=== PATIENT | female | born 1975 | race Two or more races ===

== ENCOUNTER 2025-06-11 22:06 | Inpatient (IN) | payer BC, OTHER ==
[~2025-06-11] VITALS: Ht 154.9 cm; Wt 66.4 kg
--- NOTE | 2025-06-11 22:23 | ECG ---
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
[2025-06-11] MEDS: NITROGLYCERIN 0.4 MG SL TAB SL ONE (23:43)
[2025-06-11 23:45] LABS: Hematocrit 48.4 % (36.0-46.0); Hemoglobin 16.6 g/dL (12.2-16.2); Mean Corpuscular Hemoglobin 29.5 pg (28.0-32.0); Mean Corpuscular Volume 85.9 fL (80.0-100.0); Nucleated Red Blood Cells % 0.1 %
--- NOTE | 2025-06-11 23:52 | DVH ---
CLINICAL HISTORY: cp TECHNIQUE: Single view of the chest was obtained. COMPARISON: None FINDINGS: The heart size and pulmonary vasculature are normal. The lungs are clear. IMPRESSION: NO ACUTE CARDIOPULMONARY PROCESS.
--- NOTE | 2025-06-11 23:56 | DVH ---
EXAM: CT HEAD WITHOUT CONTRAST INDICATION: HTN, TECHNIQUE: CT of the head without intravenous contrast. Radiation Dose : 1. Head: CT Dose: CTDI volume is 49.02 mGy. Dose-length product is 884.06 mGy*cm The dose indicators for CT are the volume Computed Tomography (CT) Dose Index (CTDIvol) and the Dose Length Product (DLP), and are measured in units of mGy and mGy-cm, respectively. These indicators are not patient dose, but values generated from the CT scanner acquisition factors. The report includes radiation exposure data for exposures received during this examination. COMPARISON: None FINDINGS: The cerebral parenchyma appears to be normal configuration and attenuation. The ventricles, cisterns , and sulci appear age-appropriate. There is no evidence for acute territorial infarct, hemorrhage, or mass effect. The orbits are normal. Subtotal opacification of the left sphenoid sinus. Polyp versus retention cy st within the right sphenoid sinus. The soft tissues and osseous structures appear within normal short its. IMPRESSION: 1. No acute territorial infarct, intracranial hemorrhage, or mass effect. 2. Left sphenoid sinus disease. 3. If clinical symptoms persist, MRI may be beneficial in further evaluation. Radiation optimization: All CT scans at this facility use at least one of these dose optimization jamey hniques: automated exposure control mA and/or kV adjustment per patient size (includes targeted exam s where dose is matched to clinical indication) or iterative reconstruction.
[2025-06-11 23:59] LABS: Chloride 105 mmol/L (98-107); Potassium 3.6 mmol/L (3.5-5.1); Sodium 140 mmol/L (136-145)
[2025-06-12] VITALS (13 sets, daily range): BP systolic 107–152; BP diastolic 72–101; PULSE 64–85; RESP 16–20; TEMP 97.7–98.7; O2SAT 94–100
[2025-06-12] LABS: Anion Gap 8 (5-15); Calcium 9.2 mg/dL (8.7-10.4); Carbon Dioxide 27 mmol/L (20-31)
[2025-06-12 00:06] LABS: BUN/Creatinine Ratio 21.6 (10.0-20.0); Blood Urea Nitrogen 16 mg/dL (9-23); Glucose 102 mg/dL (74-106)
--- NOTE | 2025-06-12 00:16 | ED.PDOC ---
HPI Comments HPI: Poor Historian. 49-year-old female sent by her primary care doctor for evaluation of hy pertension. Patient has known history of hypertension is on losartan and states compliance with the medications. She checked her blood pressure yesterday and was in the 200s systolically. She checked it again this morning it was 150s systolic. She called her PCP who told her to go to the ER. Patient has a associated mild midsternal nonspecific chest discomfort and some mild forehead headache with the elevated blood pressure. Denies any other acute symptoms. Past Medical History: Hypertension Past Surgical History: Denies any Social history: Tobacco abuse denies drugs Positive family history for coronary artery disease. REVIEW OF SYSTEMS: CONSTITUTIONAL: Denies acute: fever, diaphoresis, chills, generalized weakness. HEAD: Denies acute: photophobia Eyes: Denies acute: Double vision, vision loss, eye pain, eye discharge. EARS: Denies acute: tinnitus, hearing loss, ear discharge, ear pain, THROAT: Denies acute: sore throat, swelling, difficulty swallowing , pain with swallowing, change in voice. NECK: Denies acute: neck pain, neck swelling, stiff neck. HEART: Denies acute : palpitations, LUNGS: Denies acute: SOB, wheezing, cough, hemoptysis ABDOMEN: Denies acute: abdominal pain, Nausea, Vomiting, diarrhea, melena , hematemesis, hematochezia SKIN: Denies acute: rash, redness, lesions, itchiness. EXTREMITIES: Denies acute: calf pain, numbness, tingling, weakness, denies pain in extremity. Denies acute: Low back pain. Neuro: Denies acute: focal neurological deficit, motor or sensory focal neurological deficit, tremors, seizure like activity, confusion, dizziness, change in mental status, loss of bowel or bladder function, cauda equina like symptoms. : Denies acute: dysuria, hematuria, flank pain, increase in urinary frequency. PSYCH: Denies acute: hallucination, suicidal ideation, homicidal ideation. FEMALE: Denies acute: abnormal vaginal bleeding, foul odor, unusual discharge. PHYSICAL EXAM: General: --------acute distress, awake and alert. Head: normocephalic, atraumatic. Neck: supple, trachea is midline, no swelling. Throat: Normal phonation. Eyes:, no erythema, no purulent discharge, no proptosis, no icterus. Heart: regular rate, regular rhythm, no significant murmur appreciated. Lungs: no apparent respiratory distress, Able to speak in full sentences. No wheezing, no rhonchi, no crackles. No stridors Clear to auscultation bilaterally. Abdomen: non tender to palpation, non distended, soft, no guarding, no rebound, + bowel sounds. Neuro: Awake, Alert, oriented to name, self, situation, follows commands GCS=15. Speech is normal. Skin: no petechia, no purpura, no cyanosis, non-pale, not jaundice. Lower extremities: --no - Pitting edema no deformity, no focal swelling, no calf TTP. Makes eye contact. moves all four extremities. Face: no apparent facial droop. Ambulating in the ED independently. ED COURSE: DISCLAIMER: This medical document was created using an electronic medical record system with voice recognition software and computerized dictation system. Although this document has been carefully reviewed, there might still be some phonetic and typographical errors. Occasional wrong-word or "sound-alike" substitutions may have occurred due to the inherent limitations of voice recognition software. These areas are purely typographical due to imperfections of the software programs and do not reflect any compromise in the patient's medical care. Please read the chart carefully and recognize, using context, where these substitutions have occurred. Chief Complaint: High Blood Pressure Time Seen by MD: 23:20 Reviewed Notes: Allergies Allergies: Coded Allergies: NO KNOWN ALLERGIES (Unverified , 06/11/25) Information Source: Patient Mode of Arrival: Ambulatory Was a procedure done? Was a procedure done?: No CP Differential Dx Differential Diagnosis: Other Differential Diagnosis: Other (DDX include renal disease, thyroid disease, electrolyte abnormality, increased salt intake, medications non-compliance, undiagnosed HTN, Hypertensive crisis, hypertensive urgency., drug toxicity.) Differential Diagnosis: Other (Ddx include but not limitied to gastritis, musculoskeletal pain, radiculopathy, atypical chest pain, dissection, aneurysm, ACS, unstable angina, hiatal hernia, GERD, anxiety, costochondritis, PE, pneumothroax, neoplasm, cardiac ischemia, drug abuse, anemia.) X-Ray, Labs, Meds, VS Vital Signs Date Time Temp Pulse Resp B/P (MAP) Pulse Ox O2 Delivery O2 Flow Rate FiO2 06/12/25 02:03 61 14 152/88 (109) 96 06/12/25 01:00 93 169/112 06/12/25 01:00 169/112 06/12/25 00:02 152/102 (119) 06/11/25 23:43 159/98 06/11/25 23:43 77 19 159/98 (118) 97 06/11/25 22:17 82 06/11/25 22:08 98.7 85 18 195/126 97 98.7 Lab Test 06/12/25 00:25 06/11/25 23:34 Range/Units Troponin I High Sensitivity 4 3 L </=34 ng/L White Blood Count 11.5 H 4.4-10.8 10^3/uL Red Blood Count 5.63 H 4.0-5.20 10^6/uL Hemoglobin 16.6 H 12.2-16.2 g/dL Hematocrit 48.4 H 36.0-46.0 % Mean Corpuscular Volume 85.9 80.0-100.0 fL Mean Corpuscular Hemoglobin 29.5 28.0-32.0 pg Mean Corpuscular Hemoglobin Concent 34.4 32.0-36.0 g/dL Red Cell Distribution Width 13.8 11.8-14.3 % Platelet Count 292 140-450 10^3/uL Mean Platelet Volume 7.6 6.9-10.8 fL Neutrophils (%) (Auto) 49.6 37.0-80.0 % Lymphocytes (%) (Auto) 38.4 10.0-50.0 % Monocytes (%) (Auto) 6.1 0.0-12.0 % Eosinophils (%) (Auto) 4.5 0.0-7.0 % Basophils (%) (Auto) 1.4 0.0-2.0 % Neutrophils # (Auto) 5.7 1.6-8.6 10 ^3/uL Lymphocytes # (Auto) 4.4 0.4-5.4 10 ^3/uL Monocytes # (Auto) 0.7 0-1.3 10 ^3/uL Eosinophils # (Auto) 0.5 0-0.8 10 ^3/uL Basophils # (Auto) 0.2 0-0.2 10 ^3/uL Nucleated Red Blood Cells 0.1 % Sodium Level 140 136-145 mmol/L Potassium Level 3.6 3.5-5.1 mmol/L Chloride Level 105 98-107 mmol/L Carbon Dioxide Level 27 20-31 mmol/L Anion Gap 8 5-15 Blood Urea Nitrogen 16 9-23 mg/dL Creatinine 0.74 0.550-1.02 mg/dL Glomerular Filtration Rate Calc 99 >90 mL/min BUN/Creatinine Ratio 21.6 H 10.0-20.0 Serum Glucose 102 74-106 mg/dL Calcium Level 9.2 8.7-10.4 mg/dL Current Medications Medications (Trade) Dose Ordered Sig/Kane Route Start Time Stop Time Status Last Admin Nitroglycerin (Ntrostat Sublingual) 0.4 mg ONCE ONCE SL 06/11/25 23:30 06/12/25 01:02 DC 06/11/25 23:43 Labetalol HCl (Labetalol HCl) 5 mg ONCE ONCE IV 06/12/25 00:15 06/12/25 01:02 DC 06/12/25 01:00 Aspirin (Ecotrin Enteric Coated Tablet) 325 mg ONCE ONCE PO 06/12/25 00:15 06/12/25 01:02 DC 06/12/25 00:55 [place] [id number] Ph: [phone] DIAGNOSTIC IMAGING Diagnostic Imaging Report : [id number] Signed PATIENT: YUSEF BERMUDEZ ACCT: [id number] UNIT: [id number] : 1975 LOC: ER ROOM / BED: / AGE / SEX: 49 / F ADM STATUS: REG ER SERVICE 2320 ORDERING PHYSICIAN: AZAM MCKINNON DO PROCEDURE(s): HWOCT - HEAD WITHOUT CONTRAST REASON: HTN, ORDER NUMBER(s): [id number], ACCESSION NUMBER(s): [id number] EXAM: CT HEAD WITHOUT CONTRAST INDICATION: HTN, TECHNIQUE: CT of the head without intravenous contrast. Radiation Dose : 1. Head: CT Dose: CTDI volume is 49.02 mGy. Dose-length product is 884.06 mGy*cm The dose indicators for CT are the volume Computed Tomography (CT) Dose Index (CTDIvol) and the Dose Length Product (DLP), and are measured in units of mGy and mGy-cm, respectively. These indicators are not patient dose, but values generated from the CT scanner acquisition factors. The report includes radiation exposure data for exposures received during this examination. COMPARISON: None FINDINGS: The cerebral parenchyma appears to be normal configuration and attenuation. The ventricles, cisterns, and sulci appear age-appropriate. There is no evidence for acute territorial infarct, hemorrhage, or mass effect. The orbits are normal. Subtotal opacification of the left sphenoid sinus. Polyp versus retention cyst within the right sphenoid sinus. The soft tissues and osseous structures appear within normal limits. IMPRESSION: 1. No acute territorial infarct, intracranial hemorrhage, or mass effect. 2. Left sphenoid sinus disease. 3. If clinical symptoms persist, MRI may be beneficial in further evaluation. Radiation optimization: All CT scans at this facility use at least one of these dose optimization techniques: automated exposure control mA and/or kV adjustment per patient size (includes targeted exams where dose is matched to clinical indication) or iterative reconstruction. ATED BY: ADAM SEXTON MD DICTATED DATE/TIME: 06/11/252353 SIGNED BY: ADAM SEXTON MD SIGNED DATE/TIME: 06/11/252353 CC: [place] [address] Ph: [phone] DIAGNOSTIC IMAGING Diagnostic Imaging Report : [id number] Signed PATIENT: YUSEF BERMUDEZ ACCT: [id number] UNIT: [id number] : 1975 LOC: ER ROOM / BED: / AGE / SEX: 49 / F ADM STATUS: REG ER SERVICE 19 ORDERING PHYSICIAN: AZAM MCKINNON DO PROCEDURE(s): CXRP - CHEST PORTABLE REASON: cp ORDER NUMBER(s): [id number], ACCESSION NUMBER(s): [id number] CLINICAL HISTORY: cp TECHNIQUE: Single view of the chest was obtained. COMPARISON: None FINDINGS: The heart size and pulmonary vasculature are normal. The lungs are clear. IMPRESSION: NO ACUTE CARDIOPULMONARY PROCESS. ATED BY: MATILDA VALENZUELA MD DICTATED DATE/TIME: 06/11/252348 SIGNED BY: MATILDA VALENZUELA MD SIGNED DATE/TIME: 06/11/252348 CC: Time of 1ST Reevaluation: 02:24 (After given patient's nitroglycerin and labetalol, chest pain and headache has resolved) Reevaluation 1ST: Resolved Patient Education/Counseling: Diagnosis, Treatment Family Education/Counseling: Other Comments MDM: patient presented with the above HPI.--cardiac----workup was initiated. patient was found with the above mentioned diagnosis. the following medications were ordered: please refer to order lists of meds and tests obtained by myself Dr. Mckinnon. Patient ED course and VS have been stabilized. Patient has been reassessed in the ED and remained in a stable condition. Pertinent incidental findings were discussed with the patient and/or family. Patient/family voices understanding and is agreeable with plan. Patient has been observed in the ED adequate length of time to insure improvement/stability. Escalation of care considered: Consideration of escalation to observation or admission Patient was given nitroglycerin sublingual and labetalol IV. Symptoms resolved. Patient's heart score is at least three. Patient has never had any cardiac workup. Patient was ADMITTED to the medicine team for further evaluation and treatment of their presentation. All the reports of any imaging studies that were ordered by myself were reviewed by myself. Departure 1 Departure Time of Disposition: 00:14 Impression: Primary Impression: Hypertensive urgency Additional Impressions: Chest pain Sinus disease Disposition: ADMITTED INPATIENT Admit to: Tele Condition: Guarded Discharged With: Self Critical Care Note Critical Care Time?: Yes (35 min-critical care time only) Heart Score Heart Score: Heart Score Response (Comments) Value History Moderate Suspicious 1 EKG Normal 0 Age 45-64 1 Risk Factors 1 or 2 risk factors 1 Troponin Normal limit 0 Total 3 AZAM MCKINNON DO Jun 12, 2025 00:16
[2025-06-12] MEDS: ASPirin-EC 325mg tab PO ONE (00:55)
[2025-06-12] MEDS: LABETALOL HCL 20 MG/4 ML VL IV ONE (01:00)
[2025-06-12] MEDS ORDERED: ONDANSETRON HCL 4 MG/2 ML VIAL IV PRN (02:30)
[2025-06-12] MEDS ORDERED: hydrALAZINE HCL 20 MG/ML VL IV PRN (02:30)
[2025-06-12] MEDS ORDERED: ACETAMINOPHEN 325 MG TAB PO PRN (02:30)
--- NOTE | 2025-06-12 02:30 | DVHHP2 ---
History of Present Illness Reason for Visit: Hypertension History of Present Illness 49-year-old female presents for evaluation of hypertension. Patient reports her blood pressure being elevated since yesterday. She states the highs has been in the 200s. She contacted her primary care provider who advised her to present for further evaluation. She reports headache, dizziness and nausea. Denies any chest pain or shortness for breath. No other acute complaints reported. Past Medical History Hypertension and asthma Past Surgical History Denies Family History Noncontributory Smoke: No ALCOHOL: none Drugs: None Lives: with Family Review of Systems Review of Systems Review of systems are currently negative otherwise addressed in HPI. Allergies: Coded Allergies: NO KNOWN ALLERGIES (Unverified , 06/11/25) Exam Vital Signs Vital Signs Date Time Temp Pulse Resp B/P (MAP) Pulse Ox O2 Delivery O2 Flow Rate FiO2 06/12/25 02:03 61 14 152/88 (109) 96 06/11/25 22:08 98.7 98.7 Exam Gen: 49-year-old female in no apparent distress Skin: Warm, dry, normal color and texture, no rash. HEENT: Normocephalic atraumatic, mucous membranes moist and pink. Neck: Cervical and supraclavicular nodes normal without enlargement, trachea is midline, thyroid gland is normal without masses. Pulmonary: Clear to auscultation and percussion bilaterally. Cardiac: Regular rate and rhythm. No murmur Abdomen: Soft, nontender, nondistended, bowel sounds present all 4 quadrants, no guarding, no rigidity, no organomegaly. Extremities: No cyanosis, clubbing, no edema Neuro: Cranial nerves II through XII grossly intact, normal affect and speech, no focal motor deficits. Labs/Xrays ORDERING PHYSICIAN: AZAM MCKINNON DO PROCEDURE(s): CXRP - CHEST PORTABLE REASON: cp ORDER NUMBER(s): [id number], ACCESSION NUMBER(s): [id number] CLINICAL HISTORY: cp TECHNIQUE: Single view of the chest was obtained. COMPARISON: None FINDINGS: The heart size and pulmonary vasculature are normal. The lungs are clear. IMPRESSION: NO ACUTE CARDIOPULMONARY PROCESS. RING PHYSICIAN: AZAM MCKINNON DO PROCEDURE(s): HWOCT - HEAD WITHOUT CONTRAST REASON: HTN, ORDER NUMBER(s): [id number], ACCESSION NUMBER(s): [id number] EXAM: CT HEAD WITHOUT CONTRAST INDICATION: HTN, TECHNIQUE: CT of the head without intravenous contrast. Radiation Dose : 1. Head: CT Dose: CTDI volume is 49.02 mGy. Dose-length product is 884.06 mGy*cm The dose indicators for CT are the volume Computed Tomography (CT) Dose Index (CTDIvol) and the Dose Length Product (DLP), and are measured in units of mGy and mGy-cm, respectively. These indicators are not patient dose, but values generated from the CT scanner acquisition factors. The report includes radiation exposure data for exposures received during this examination. COMPARISON: None FINDINGS: The cerebral parenchyma appears to be normal configuration and attenuation. The ventricles, cisterns, and sulci appear age-appropriate. There is no evidence for acute territorial infarct, hemorrhage, or mass effect. The orbits are normal. Subtotal opacification of the left sphenoid sinus. Polyp versus retention cyst within the right sphenoid sinus. The soft tissues and osseous structures appear within normal limits. IMPRESSION: 1. No acute territorial infarct, intracranial hemorrhage, or mass effect. 2. Left sphenoid sinus disease. 3. If clinical symptoms persist, MRI may be beneficial in further evaluation. Radiation optimization: All CT scans at this facility use at least one of these dose optimization techniques: automated exposure control mA and/or kV adjustment per patient size (includes targeted exams where dose is matched to clinical indication) or iterative reconstruction. Labs Test 06/12/25 00:25 06/11/25 23:34 Range/Units Troponin I High Sensitivity 4 </=34 ng/L White Blood Count 11.5 H 4.4-10.8 10^3/uL Red Blood Count 5.63 H 4.0-5.20 10^6/uL Hemoglobin 16.6 H 12.2-16.2 g/dL Hematocrit 48.4 H 36.0-46.0 % Mean Corpuscular Volume 85.9 80.0-100.0 fL Mean Corpuscular Hemoglobin 29.5 28.0-32.0 pg Mean Corpuscular Hemoglobin Concent 34.4 32.0-36.0 g/dL Red Cell Distribution Width 13.8 11.8-14.3 % Platelet Count 292 140-450 10^3/uL Mean Platelet Volume 7.6 6.9-10.8 fL Neutrophils (%) (Auto) 49.6 37.0-80.0 % Lymphocytes (%) (Auto) 38.4 10.0-50.0 % Monocytes (%) (Auto) 6.1 0.0-12.0 % Eosinophils (%) (Auto) 4.5 0.0-7.0 % Basophils (%) (Auto) 1.4 0.0-2.0 % Neutrophils # (Auto) 5.7 1.6-8.6 10 ^3/uL Lymphocytes # (Auto) 4.4 0.4-5.4 10 ^3/uL Monocytes # (Auto) 0.7 0-1.3 10 ^3/uL Eosinophils # (Auto) 0.5 0-0.8 10 ^3/uL Basophils # (Auto) 0.2 0-0.2 10 ^3/uL Nucleated Red Blood Cells 0.1 % Sodium Level 140 136-145 mmol/L Potassium Level 3.6 3.5-5.1 mmol/L Chloride Level 105 98-107 mmol/L Carbon Dioxide Level 27 20-31 mmol/L Anion Gap 8 5-15 Blood Urea Nitrogen 16 9-23 mg/dL Creatinine 0.74 0.550-1.02 mg/dL Glomerular Filtration Rate Calc 99 >90 mL/min BUN/Creatinine Ratio 21.6 H 10.0-20.0 Serum Glucose 102 74-106 mg/dL Calcium Level 9.2 8.7-10.4 mg/dL SEPSIS Sepsis Screen Date sepsis recognized/suspect: Jun 11, 2025 Time Sepsis recognized/suspect: 2207 Recent Procedure: No On Antibiotic Therapy: No Respiratory Rate >20: No Heart Rate >90: No Temp<36 C (96.8 F) or >38.3 C: No SBP <90 or MAP <65 mmHG: No New Acute Mental Status Change: No Is the patient on CPAP, BIPAP,: No Physician Orders Entry Manager (06/11/25 ) Chest Portable (06/11/25 23:20) Head Without Contrast (06/11/25 23:20) Albuterol Medneb (Ventolin Medneb) (06/12/25 02:30) Losartan Tablet (Cozaar Tablet) (06/12/25 10:00) Thyroid Stimulating Hormone (06/12/25 02:25) Admit (06/12/25 02:25) Hydrocodone-Acet 5/325mg Tab (Welch 5/32 (06/12/25 02:30) Ondansetron Hcl (Zofran) (06/12/25 02:30) Cardiac Diet-2gna,Lofat,Lochol (06/12/25 Breakfast) Echo 2d Mode Cardiac Dop (06/12/25 02:25) Condition: Stable (06/12/25 02:25) Acetaminophen Tablet (Tylenol Tablet) (06/12/25 02:30) Bedrest With Bathroom Privileg (06/12/25 02:25) Hydralazine Injection (Apresoline Inject (06/12/25 02:30) Vital Signs Date Time Temp Pulse Resp B/P (MAP) Pulse Ox O2 Delivery O2 Flow Rate FiO2 06/12/25 02:03 61 14 152/88 (109) 96 06/12/25 01:00 93 169/112 06/12/25 01:00 169/112 06/12/25 00:02 152/102 (119) 06/11/25 23:43 159/98 06/11/25 23:43 77 19 159/98 (118) 97 06/11/25 22:17 82 06/11/25 22:08 98.7 85 18 195/126 97 98.7 Laboratory Tests Test 06/11/25 23:34 White Blood Count 11.5 10^3/uL (4.4-10.8) H Medications Medications Dose Ordered Sig/Kane Route Start Time Stop Time Status Last Admin Dose Admin Aspirin 325 mg ONCE ONCE PO 06/12/25 00:15 06/12/25 01:02 DC 06/12/25 00:55 325 MG Labetalol HCl 5 mg ONCE ONCE IV 06/12/25 00:15 06/12/25 01:02 DC 06/12/25 01:00 5 MG Nitroglycerin 0.4 mg ONCE ONCE SL 06/11/25 23:30 06/12/25 01:02 DC 06/11/25 23:43 0.4 MG Assessment/Plan Assessment/Plan Assessment Hypertensive urgency Plan Admit the patient to Med surge to the hospitalist As needed antihypertensives Echocardiogram pending Resume home medications Continue treatment per orders. Plan discussed with: Patient My Orders Orders - FRANCES REICH Procedure Category Date Status Time Albuterol Medneb PHA 06/12/25 Transmitted (Ventolin Medneb) 02:30 Losartan Tablet PHA 06/12/25 Transmitted (Cozaar Tablet) 10:00 Thyroid Stimulating LAB 06/12/25 Transmitted Hormone 02:25 Admit ADMIT 06/12/25 Transmitted 02:25 Hydrocodone-Acet PHA 06/12/25 Transmitted 5/325mg Tab (Welch 02:30 Ondansetron Hcl PHA 06/12/25 Transmitted (Zofran) 02:30 Cardiac DIET 06/12/25 Transmitted Diet-2gna,Lofat,Lochol Breakfast Echo 2d Mode Cardiac US 06/12/25 Transmitted DOP 02:25 Condition: Stable REGGIE 06/12/25 Transmitted 02:25 Acetaminophen Tablet PHA 06/12/25 Transmitted (Tylenol Tablet) 02:30 Bedrest With Bathroom REGGIE 06/12/25 Transmitted Privileg 02:25 Hydralazine Injection PHA 06/12/25 Transmitted (Apresoline Inject 02:30 Date of Service: Jun 12, 2025 Billing Provider: FRANCES REICH Common Visit Codes: [id number] INP/OBS CARE (HIGH) FRANCES REICH Jun 12, 2025 02:30
[2025-06-12] MEDS: ALBUTEROL SULF 2.5 MG/0.5ML(0.5%) NEB SOLN NEB PRN (03:24)
[2025-06-12] MEDS: HYDROcodone-ACET 5/325MG TAB PO PRN (04:46)
[2025-06-12] MEDS: LOSARTAN POTASSIUM 50 MG TAB PO SCH (10:00)
[2025-06-12] MEDS ORDERED: LOSA-534 PO (20:18)
[2025-06-13 05:00] VITALS: BP 126/81; PULSE 70; RESP 16; TEMP 97.7; O2SAT 95
[2025-06-13 05:48] VITALS: O2SAT 95
[2025-06-13 08:00] VITALS: RESP 18; O2SAT 97
[2025-06-13 08:55] VITALS: BP 121/82; PULSE 65; RESP 18; TEMP 98.4; O2SAT 97
[2025-06-13] MEDS ORDERED: AUG875T PO (11:14)
--- NOTE | 2025-06-13 11:16 | DVHDS2 ---
Discharge Summary Date of Admission Jun 12, 2025 at 02:25 Date of Discharge: Jun 13, 2025 Labs/Diagnostic Data: Laboratory Results Test 06/12/25 00:25 06/11/25 23:34 Troponin I High Sensitivity 4 ng/L (</=34) Thyroid Stimulating Hormone (TSH) 2.98 uIU/mL (0.55-4.78) White Blood Count 11.5 10^3/uL (4.4-10.8) Red Blood Count 5.63 10^6/uL (4.0-5.20) Hemoglobin 16.6 g/dL (12.2-16.2) Hematocrit 48.4 % (36.0-46.0) Mean Corpuscular Volume 85.9 fL (80.0-100.0) Mean Corpuscular Hemoglobin 29.5 pg (28.0-32.0) Mean Corpuscular Hemoglobin Concent 34.4 g/dL (32.0-36.0) Red Cell Distribution Width 13.8 % (11.8-14.3) Platelet Count 292 10^3/uL (140-450) Mean Platelet Volume 7.6 fL (6.9-10.8) Neutrophils (%) (Auto) 49.6 % (37.0-80.0) Lymphocytes (%) (Auto) 38.4 % (10.0-50.0) Monocytes (%) (Auto) 6.1 % (0.0-12.0) Eosinophils (%) (Auto) 4.5 % (0.0-7.0) Basophils (%) (Auto) 1.4 % (0.0-2.0) Neutrophils # (Auto) 5.7 10 ^3/uL (1.6-8.6) Lymphocytes # (Auto) 4.4 10 ^3/uL (0.4-5.4) Monocytes # (Auto) 0.7 10 ^3/uL (0-1.3) Eosinophils # (Auto) 0.5 10 ^3/uL (0-0.8) Basophils # (Auto) 0.2 10 ^3/uL (0-0.2) Nucleated Red Blood Cells 0.1 % Sodium Level 140 mmol/L (136-145) Potassium Level 3.6 mmol/L (3.5-5.1) Chloride Level 105 mmol/L (98-107) Carbon Dioxide Level 27 mmol/L (20-31) Anion Gap 8 (5-15) Blood Urea Nitrogen 16 mg/dL (9-23) Creatinine 0.74 mg/dL (0.550-1.02) Glomerular Filtration Rate Calc 99 mL/min (>90) BUN/Creatinine Ratio 21.6 (10.0-20.0) Serum Glucose 102 mg/dL (74-106) Calcium Level 9.2 mg/dL (8.7-10.4) Other Laboratory Tests 06/11/25 23:34 Final Diagnosis/Problems List HTN urgency Sinusitis Discharge Disposition: Home Discharge Instruct/Medications Diet: Cardiac 2g Na,low cholest Activity: No Restrictions, As Tolerated Follow Up/Referral: Pcp 1-2 weeks Medications: Continue home meds Augmentin 875/125 bid Scheduled Amoxicillin & Pot Clavulanate (Augmentin Tablet), 875 MG PO BID Losartan Potassium (Losartan Potassium), 1 TAB PO DAILY, (Reported) Discharge Statement: "Patient was advised to return to the ER or call 911 if any headaches, dizziness, shortness of breath, chest pain, abdominal pain, bleeding, fevers, or worsening of medical condition. Patient was counseled about treatment plan, medications, possible side effects, patientverbalized understanding. All questions were answered to the best of my ability. This discharge took greater then 30 minutes in planning, reviewing documentation, counseling the patient, and discussing with other team members." ASSESSMENT ASSESSMENT Assessment HTN urgency Sinusitis TALA STRONG MD Jun 13, 2025 11:15
[2025-06-13] MEDS ORDERED: LOSA-534 PO (12:03)
[2025-06-13 13:00] VITALS: BP 149/99; PULSE 75; RESP 16; TEMP 97.6; O2SAT 99
[2025-06-13 16:58] VITALS: BP 136/86; PULSE 75; RESP 20; TEMP 98.8; O2SAT 99
== END 2025-06-13 17:45 | disposition home or self-care (01) | DRG 305 ==
LOC: ER 22:06 → OVERFLOW 06-12 02:25 → WEST WING 06-12 23:10
PROVIDERS: ADMIT Internal Medicine; ATTEND Internal Medicine
DX: I16.0 Hypertensive urgency (principal); J32.9 Chronic sinusitis, unspecified; I10 Essential (primary) hypertension; J45.909 Unspecified asthma, uncomplicated; Z82.49 Family history of ischemic heart disease and other diseases of the circulatory system
CPT/HCPCS: 36415; 70450; 71045; 80048; 84443; 84484; 85025; 93005; 93306; 94640; 96374; 99291; G0378

== ENCOUNTER 2025-06-14 17:48 | Emergency (ER) | payer BC, OTHER ==
[~2025-06-14] VITALS: Ht 154.9 cm; Wt 72.7 kg
[~2025-06-14 17:48] MED LIST: AUG875T PO; LOSA-534 PO
[2025-06-14 18:15] VITALS: BP 166/104; PULSE 82; RESP 12; TEMP 98.7; O2SAT 96
--- NOTE | 2025-06-14 18:18 | ECG ---
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
--- NOTE | 2025-06-14 20:05 | ED.PDOC ---
HPI Comments 49-year-old female complaining of headache and dizziness. States he had checked her blood pressure at home and it was very high. Patient does report being in a verbal altercation with relatives at home. Patient was recently seen at this hospital for same situation three days ago. States she has been taking her losartan as prescribed. Patient denies any chest pain. 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 History Constitutional: denies: chills, diaphoresis, fatigue, fever, malaise, sweats, weakness, others EENTM: denies: blurred vision, double vision, ear bleeding, ear discharge, ear drainage, ear pain, ear ringing, eye pain, eye redness, hearing loss, mouth pain, mouth swelling, nasal discharge, nose bleeding, nose congestion, nose pain, photophobia, tearing, throat pain, throat swelling, voice changes, others Respiratory: denies: cough, hemoptysis, orthopnea, SOB at rest, shortness of breath, SOB with excertion, stridor, wheezing, others Cardiovascular: denies: chest pain, dizzy spells, diaphoresis, Dyspnea on exertion, edema, irregular heart beat, left arm pain, lightheadedness, palpitations, PND, syncope, others Gastrointestinal: denies: abdomen distended, abdominal pain, blood streaked bowels, constipated, diarrhea, dysphagia, difficulty swallowing, hematemesis, melena, nausea, poor appetite, poor fluid intake, rectal bleeding, rectal pain, vomiting, others Genitourinary: denies: abnormal vagina bleeding, burning, dyspareunia, dysuria, flank pain, frequency, hematuria, incontinence, pain, , vagina discharge, urgency, others Neurological: denies: dizziness, fainting, headache, left sided numbness, left sided weakness, numbness, paresthesia, pre-existing deficit, right sided numbness, right sided weakness, seizure, speech problems, tingling, tremors, weakness, others Musculoskeletal: denies: back pain, gout, joint pain, joint swelling, muscle pain, muscle stiffness, neck pain, others Endocrine: denies: excessive hunger, excessive sweating, excessive thirst, excessive urination, flushing, intolerance to cold, intolerance to heat, unexplained weight gain, unexplained weight loss, others Physical Exam General Appearance: No Apparent Distress, Normal HEENT: Normal ENT Inspection, Pharynx Normal, TMs Normal Neck: Full Range of Motion, Non-Tender, Normal, Normal Inspection Respiratory: Chest Non-Tender, Lungs Clear, No Accessory Muscle Use, No Respiratory Distress, Normal Breath Sounds Cardiovascular: No Edema, No JVD, No Murmur, No Gallop, Normal Peripheral Pulses, Regular Rate/Rhythm Breast Exam: Deferred Gastrointestinal: No Organomegaly, Non Tender, No Pulsatile Mass, Normal Bowel Sounds, Soft Genitalia: Deferred Pelvic: Deferred Rectal: Deferred Extremities: No calf tenderness, Normal capillary refill, Normal inspection, Normal range of motion, Non-tender, No pedal edema Musculoskeletal : Apperance: Normal Neurologic: Alert, cycle director II-XII nml as Tested, No Motor Deficits, Normal Affect, Normal Mood, No Sensory Deficits Cerebellar Function: Normal Reflexes: Normal Skin: Dry, Normal Color, Warm Lymphatic: No Adenopathy Was a procedure done? Was a procedure done?: No CP Differential Dx Differential Diagnosis: N/A Differential Diagnosis: HTN Essential, HTN Accelerated, HTN Encephalopathy Differential Diagnosis: Angina X-Ray, Labs, Meds, VS Vital Signs Date Time Temp Pulse Resp B/P (MAP) Pulse Ox O2 Delivery O2 Flow Rate FiO2 06/14/25 18:53 166/105 06/14/25 18:15 82 12 96 Room Air* 0 21 06/14/25 18:15 98.7 82 12 166/104 (124) 96 98.7 06/14/25 17:51 98 06/14/25 17:50 98.5 87 18 198/127 99 98.5 Current Medications Medications (Trade) Dose Ordered Sig/Kane Route Start Time Stop Time Status Last Admin Hydralazine HCl (Apresoline Tablet) 20 mg ONCE ONCE PO 06/14/25 18:30 06/14/25 18:42 DC 06/14/25 18:53 X-Ray, Labs, Meds, VS Comment Imaging was reviewed by this provider, there is no obvious pathological or acute disease process. Pending radiology review Labs were reviewed by this provider, no abnormalities Vital signs reviewed by this provider, clinically stable Time of 1ST Reevaluation: 20:05 Reevaluation 1ST: Improved Patient Education/Counseling: Diagnosis, Treatment, Need For Follow Up (Follow up with PCP next available appointment.) Family Education/Counseling: Diagnosis SEPSIS Sepsis Screen Date sepsis recognized/suspect: Jun 14, 2025 Time Sepsis recognized/suspect: 175 Recent Procedure: No On Antibiotic Therapy: No Respiratory Rate >20: No Heart Rate >90: No Temp<36 C (96.8 F) or >38.3 C: No SBP <90 or MAP <65 mmHG: No New Acute Mental Status Change: No Is the patient on CPAP, BIPAP,: No Vital Signs Date Time Temp Pulse Resp B/P (MAP) Pulse Ox O2 Delivery O2 Flow Rate FiO2 06/14/25 18:53 166/105 06/14/25 18:15 82 12 96 Room Air* 0 21 06/14/25 18:15 98.7 82 12 166/104 (124) 96 98.7 06/14/25 17:51 98 06/14/25 17:50 98.5 87 18 198/127 99 98.5 Medications Medications Dose Ordered Sig/Kane Route Start Time Stop Time Status Last Admin Dose Admin Hydralazine HCl 20 mg ONCE ONCE PO 06/14/25 18:30 06/14/25 18:42 DC 06/14/25 18:53 Departure 1 Departure Time of Disposition: 20:04 Impression: Primary Impression: Hypertensive urgency Disposition: 01 HOME / SELF CARE / HOMELESS Condition: Fair Discharged With: Self Critical Care Note Critical Care Time?: No Stability Stability form required: No Heart Score Heart Score: Heart Score Response (Comments) Value History N/A 0 EKG N/A 0 Age N/A 0 Risk Factors N/A 0 Troponin N/A 0 Total 0 VILMA BOGGS Jun 14, 2025 20:05
== END 2025-06-14 21:40 | disposition home or self-care (01) ==
LOC: EDBD 17:48 → EDUNIT# 17:48 → ER 17:48
DX: I16.0 Hypertensive urgency (principal); Z79.899 Other long term (current) drug therapy
CPT/HCPCS: 93005